=== PATIENT | male | born 1975 | race Caucasian/White ===

== ENCOUNTER 2018-01-20 09:48 | Emergency (ER) | payer BC ==
--- NOTE | 2018-01-20 10:52 | RAD REPORT ---
EXAM DESCRIPTION: RAD - Chest Pa And Lat (2 Views) - 01/20/2018 10:46 am CLINICAL HISTORY: CHEST PAIN Chest pain. COMPARISON: Chest Single View dated 10/10/2016; CHEST SINGLE VIEW dated 03/14/2015; CHEST PA AND LAT 2 VIEW dated 11/22/2012; ABDOMEN 1 VIEW KUB dated 11/22/2012 FINDINGS: The lungs are clear. The heart is normal in size. No displaced fractures. IMPRESSION: No acute or concerning finding suspected.
[2018-01-20] MEDS ORDERED: METHYLPREDNISOLONE 125 MG INJ ONE (11:06)
[2018-01-20 11:51] LABS: BUN Blood Urea Nitrogen 10 mg/dL (7-18); Bicarbonate 24 mmol/L (21-32); CKMB Creatine Kinase MB 1.3 ng/mL (0.3-3.6); Creatine Phosphokinase 161 U/L (39-308); Glucose Level 92 mg/dL (74-106); Magnesium 2.2 mg/dL (1.8-2.4); NT PRO-BNP 55 pg/mL (<125); Potassium 3.6 mmol/L (3.5-5.1); Sodium Level 141 mmol/L (136-145); Troponin (Emerg Dept Use Only) < 0.02 ng/mL (0.0-0.045)
[2018-01-20 12:00] LABS: Absolute Lymphocytes (CBC) 3.6 K/uL (0.7-4.9); Absolute Monocytes 0.8 K/uL (0.1-1.3); Absolute Neutrophil 8.9 K/uL (1.8-8.0); Basophils % 0.9 % (0-1.3); Eosinophils % 1.5 % (0-4.4); Hematocrit 47.8 % (39.6-49.0); Lymphocytes % 26.2 % (15.3-44.8); MCH 28.7 pg (27.0-35.0); MCV 83.5 fL (80-100); MPV 9.9 fL (7.6-11.3); Monocytes % 5.9 % (3.3-12.3); RBC Red Blood Cell Count 5.73 M/uL (4.33-5.43)
--- NOTE | 2018-01-20 12:11 | ER ---
Nurse's Notes [facility] Name: Ash Martinez Age: 42 yrs Sex: Male : 1975 Arrival Date: 01/20/2018 Time: 09:51 Bed 17 Private MD: Channing Barahona T Diagnosis: Pleurisy Presentation: 01/20 10:00 Presenting complaint: Patient states: pain to left lateral aspect of chest that began aa5 only with inspiration. Pt states "I had this pain about 4 years ago and they said my lung was inflamed". Transition of care: patient was not received from another setting of care. Onset of symptoms was 2017. Risk Assessment: Do you want to hurt yourself or someone else? Patient reports no desire to harm self or others. Initial Sepsis Screen: Does the patient meet any 2 criteria? No. Patient's initial sepsis screen is negative. Does the patient have a suspected source of infection? No. Patient's initial sepsis screen is negative. Care prior to arrival: None. 10:00 Method Of Arrival: Ambulatory aa5 10:00 Acuity: ROSA 3 aa5 Historical: - Allergies: 10:07 Morphine; aa5 - PMHx: 10:07 Back pain; aa5 - PSHx: 10:07 Knee surgery; aa5 - Immunization history:: Adult Immunizations up to date. - Social history:: Smoking status: Patient uses tobacco products, smokes two packs cigarettes per day. - Ebola Screening: : No symptoms or risks identified at this time. Screenin:10 Abuse screen: Denies threats or abuse. Denies injuries from another. Nutritional jl7 screening: No deficits noted. Tuberculosis screening: No symptoms or risk factors identified. Fall Risk IV access (20 points). Total Bledsoe Fall Scale indicates No Risk (0-24 pts). Assessment: 10:10 General: Appears in no apparent distress. uncomfortable, Behavior is cooperative, jl7 anxious. Pain: Complains of pain in left breast Pain currently is 3 out of 10 on a pain scale. at worst was 7 out of 10 on a pain scale. Quality of pain is described as sharp, Is continuous, Aggravated by Taking a deep breath makes it worse. Neuro: Level of Consciousness is awake, alert, obeys commands, Oriented to person, place, time, situation. Cardiovascular: Heart tones present Patient's skin is warm and dry. Rhythm is regular. Respiratory: Airway is patent Respiratory effort is even, unlabored, Respiratory pattern is regular, symmetrical, Breath sounds are clear bilaterally. GI: No signs and/or symptoms were reported involving the gastrointestinal system. : No signs and/or symptoms were reported regarding the genitourinary system. EENT: No signs and/or symptoms were reported regarding the EENT system. Derm: Skin is pink, warm \\T\\ dry. Musculoskeletal: No signs and/or symptoms reported regarding the musculoskeletal system. 11:00 Reassessment: Patient and/or family updated on plan of care and expected duration. Pain jl7 level reassessed. Patient is alert, oriented x 3, equal unlabored respirations, skin warm/dry/pink. 11:45 Reassessment: Pt reports decreased pain, "I think the medication helped it out.". jl7 12:13 Reassessment: Pt's states "Are we not even going to see an actual doctor." jl7 Educated pt and family that ERP's work under and attending ERP an that the ERD is aware and approves of all care and diagnostics provided to the pt. Pt and family request to see the ERD. ERP and ERD notified at this time. 13:00 Reassessment: Patient appears in no apparent distress at this time. Patient and/or jl7 family updated on plan of care and expected duration. Pain level reassessed. Patient is alert, oriented x 3, equal unlabored respirations, skin warm/dry/pink. 14:00 Reassessment: Dr. Jeffers at bedside discussing plan of care. jl7 Vital Signs: 10:00 BP 132 / 80; Pulse 75; Resp 20 S; Temp 98.8(TE); Pulse Ox 100% on R/A; Pain 10/10; aa5 11:00 BP 110 / 79; Pulse 68; Resp 18; Pulse Ox 97% on R/A; jl7 12:10 BP 111 / 80; Pulse 69; Resp 16; Pulse Ox 95% on R/A; jl7 13:15 BP 120 / 85; Pulse 64; Resp 12; Pulse Ox 100% ; jl7 14:24 BP 118 / 84; Pulse 65; Resp 16; Pulse Ox 99% on R/A; jl7 ED Course: 09:51 Patient arrived in ED. mr 09:51 Channing Barahona MD is Private Physician. mr 10:00 Arm band placed on Patient placed in an exam room, on a stretcher. aa5 10:03 Ml Mata FNP-C is [facility]. kb 10:03 Farshad Jeffers MD is Attending Physician. kb 10:06 Triage completed. aa5 10:10 Bridgett Rahman, BROCK is Primary Nurse. jl7 10:27 EKG done, by geophysical data technician. reviewed by Ml HERNANDEZ. at1 10:30 Patient has correct armband on for positive identification. Placed in gown. Bed in low jl7 position. Call light in reach. Side rails up X 1. manager monitoring on. Pulse ox on. NIBP on. Warm blanket given. 10:30 Initial lab(s) drawn, by me, sent to lab. Urine collected: clean catch specimen, clear. jl7 Inserted saline lock: 20 gauge in right antecubital area, using aseptic technique. Blood collected. 10:40 Chest Pa And Lat (2 Views) XRAY In Process Unspecified. EDMS 12:10 Channing Barahona MD is Referral Physician. kb 13:02 CT Chest For PE Angio In Process Unspecified. EDMS 14:10 Channing Barahona MD is Referral Physician. kb 14:10 Al Moon MD is Referral Physician. kb 14:24 No provider procedures requiring assistance completed. IV discontinued, intact, jl7 bleeding controlled, No redness/swelling at site. Pressure dressing applied. Administered Medications: 11:10 Drug: SOLU-Medrol 125 mg Route: IVP; Site: right antecubital; jl7 11:45 Follow up: Response: No adverse reaction; Pain is decreased jl7 Outcome: 12:11 Discharge ordered by . kb 14:10 Discharge ordered by MD. kb 14:24 Discharged to home ambulatory, with family. jl7 14:24 Condition: stable 14:24 Discharge instructions given to patient, family, Instructed on discharge instructions, follow up and referral plans. medication usage, Demonstrated understanding of instructions, follow-up care, medications, Prescriptions given X 2. 14:25 Patient left the ED. jl7 Signatures: Dispatcher [employer] EDVT Ml Mata FNP-C FNP-Elina Tony Katherine Rachel, RN RN aa5 Elaina Jenkins, cake puncher EKG Tat1 Bridgett Rahman, RN RN jl7
--- NOTE | 2018-01-20 12:11 | EDPHYS ---
Physician Documentation [facility] Name: Ash Martinez Age: 42 yrs Sex: Male : 1975 Arrival Date: 01/20/2018 Time: 09:51 Bed 17 Private MD: Channing Barahona T ED Physician Farshad Jeffers HPI: 01/20 10:20 This 42 yrs old Male presents to ER via Ambulatory with complaints of kb Breathing Difficulty. 10:21 The patient or guardian reports chest pain that is located primarily in the anterior kb chest wall, left. Onset: 7 day(s) ago. The pain does not radiate. Associated signs and symptoms: The patient has no apparent associated signs or symptoms. The chest pain is described as sharp, stabbing. Duration: The patient or guardian reports a single episode, that is still ongoing, wax/wane. Modifying factors: The symptoms are alleviated by nothing. the symptoms are aggravated by cough, deep breath, movement. Severity of pain: At its worst the pain was moderate in the emergency department the pain is unchanged. The patient has experienced similar episodes in the past, several times, and the symptoms today are exactly the same, to when the patient was apparently diagnosed with "inflamed lung". The patient has not recently seen a physician. Pt states he has an inflamed lung. States he had this same thing 12 years ago and again 4-5 years ago. States this time it started on and it has been waxing and waning, but not going away completely. Pain worse with deep inspiration, movement, cough. Pt smokes 1.5 packs/day. . Historical: - Allergies: 10:07 Morphine; aa5 - PMHx: 10:07 Back pain; aa5 - PSHx: 10:07 Knee surgery; aa5 - Immunization history:: Adult Immunizations up to date. - Social history:: Smoking status: Patient uses tobacco products, smokes two packs cigarettes per day. - Ebola Screening: : No symptoms or risks identified at this time. ROS: 10:17 Constitutional: Negative for fever, chills, and weight loss, Abdomen/GI: Negative for kb abdominal pain, nausea, vomiting, diarrhea, and constipation, Back: Negative for injury and pain, : Negative for injury, bleeding, discharge, and swelling, MS/Extremity: Negative for injury and deformity, Skin: Negative for injury, rash, and discoloration, Neuro: Negative for headache, weakness, numbness, tingling, and seizure. 10:17 Cardiovascular: Positive for chest pain, with cough, with movement, of the left breast, Negative for edema, orthopnea, palpitations, paroxysmal nocturnal dyspnea. 10:17 Respiratory: Positive for pleurisy, of the left breast. Exam: 10:20 Constitutional: This is a well developed, well nourished patient who is awake, alert, kb and in no acute distress. Head/Face: Normocephalic, atraumatic. Chest/axilla: Normal chest wall appearance and motion. Nontender with no deformity. No lesions are appreciated. Cardiovascular: Regular rate and rhythm with a normal S1 and S2. No gallops, murmurs, or rubs. Normal PMI, no JVD. No pulse deficits. Respiratory: Lungs have equal breath sounds bilaterally, clear to auscultation and percussion. No rales, rhonchi or wheezes noted. No increased work of breathing, no retractions or nasal flaring. Abdomen/GI: Soft, non-tender, with normal bowel sounds. No distension or tympany. No guarding or rebound. No evidence of tenderness throughout. Back: No spinal tenderness. No costovertebral tenderness. Full range of motion. Skin: Warm, dry with normal turgor. Normal color with no rashes, no lesions, and no evidence of cellulitis. MS/ Extremity: Pulses equal, no cyanosis. Neurovascular intact. Full, normal range of motion. Neuro: Awake and alert, GCS 15, oriented to person, place, time, and situation. Cranial nerves II-XII grossly intact. Motor strength 5/5 in all extremities. Sensory grossly intact. Cerebellar exam normal. Normal gait. 10:20 Respiratory: obvious pain with deep inspiration. Vital Signs: 10:00 BP 132 / 80; Pulse 75; Resp 20 S; Temp 98.8(TE); Pulse Ox 100% on R/A; Pain 10/10; aa5 11:00 BP 110 / 79; Pulse 68; Resp 18; Pulse Ox 97% on R/A; jl7 12:10 BP 111 / 80; Pulse 69; Resp 16; Pulse Ox 95% on R/A; jl7 13:15 BP 120 / 85; Pulse 64; Resp 12; Pulse Ox 100% ; jl7 14:24 BP 118 / 84; Pulse 65; Resp 16; Pulse Ox 99% on R/A; jl7 MDM: 10:03 Patient medically screened. kb 10:19 Data reviewed: vital signs, nurses notes. Data interpreted: Pulse oximetry: on room air kb is 100 %. Interpretation: normal. 12:09 Counseling: I had a detailed discussion with the patient and/or guardian regarding: the kb historical points, exam findings, and any diagnostic results supporting the discharge/admit diagnosis, lab results, radiology results, the need for outpatient follow up, a family practitioner, to return to the emergency department if symptoms worsen or persist or if there are any questions or concerns that arise at home. 12:09 ED course: Pain has subsided at this time. kb 01/20 10:14 Order name: Basic Metabolic Panel; Complete Time: 11:52 kb 01/20 10:14 Order name: CBC with Diff; Complete Time: 12:08 kb 01/20 10:14 Order name: Ckmb; Complete Time: 11:52 kb 01/20 10:14 Order name: CPK; Complete Time: 11:52 kb 01/20 10:14 Order name: Magnesium; Complete Time: 11:52 kb 01/20 10:14 Order name: NT PRO-BNP; Complete Time: 11:52 kb 01/20 10:14 Order name: PT-INR; Complete Time: 12:00 kb 01/20 10:14 Order name: Ptt, Activated; Complete Time: 12:00 kb 01/20 10:14 Order name: Troponin (emerg Dept Use Only); Complete Time: 11:52 kb 01/20 10:14 Order name: Chest Pa And Lat (2 Views) XRAY; Complete Time: 10:53 kb 01/20 10:14 Order name: D-Dimer; Complete Time: 12:00 kb 01/20 10:24 Order name: Urine Dipstick--Ancillary (enter results); Complete Time: 13:48 em1 01/20 12:14 Order name: CT Chest For PE Angio; Complete Time: 13:20 kb 01/20 10:14 Order name: EKG; Complete Time: 10:15 kb 01/20 10:14 Order name: Cardiac monitoring; Complete Time: 10:39 kb 01/20 10:14 Order name: EKG - Nurse/Tech; Complete Time: 10:39 kb 01/20 10:14 Order name: IV Saline Lock; Complete Time: 10:39 kb 01/20 10:14 Order name: Labs collected and sent; Complete Time: 10:39 kb 01/20 10:14 Order name: O2 Per Protocol; Complete Time: 10:39 kb 01/20 10:14 Order name: O2 Sat Monitoring; Complete Time: 10:39 kb 01/20 10:14 Order name: Urine Dipstick-Ancillary (obtain specimen); Complete Time: 10:23 kb 01/20 10:52 Order name: Labs - recollect needed; Complete Time: 11:09 bd Administered Medications: 11:10 Drug: SOLU-Medrol 125 mg Route: IVP; Site: right antecubital; [facility] 11:45 Follow up: Response: No adverse reaction; Pain is decreased jl7 Disposition: 01/21 06:45 Co-signature as Attending Physician, Farshad Jeffers MD I agree with the assessment and gilbert plan of care. Disposition: 01/20/18 14:10 Discharged to Home. Impression: Pleurisy. - Condition is Stable. - Discharge Instructions: Pleurisy, Ioll-tj-Soad. - Prescriptions for Prednisone 20 mg Oral Tablet - take 1 tablet by ORAL route once daily for 5 days; 5 tablet. Zithromax Z- Advid 250 mg Oral Tablet - take 1 tablet by ORAL route as directed for 5 days Day 1 - take two (2) tablets one time. Day 2, 3, 4 , 5 take one (1) tablet once daily.; 6 tablet. - Medication Reconciliation Form, Thank You Letter, Antibiotic Education, Prescription Opioid Use form. - Follow up: Emergency Department; When: As needed; Reason: Worsening of condition. Follow up: Channing Barahona MD; When: 2 - 3 days; Reason: Recheck today's complaints, Continuance of care, Re-evaluation by your physician. Follow up: Al Moon MD; When: 2 - 3 days; Reason: Recheck today's complaints, Continuance of care, Re-evaluation by your physician. Signatures: Dispatcher [employer] EDMS Ml Mata, [employer] FIELD SERVICE TECHNICIAN-Sylvia Grant Corey, MD MD cha Calderon, Audri, RN RN aa5 Bridgett Rahman RN RN jl7 Corrections: (The following items were deleted from the chart) 01/20 13:48 12:11 01/20/2018 12:11 Discharged to Home. Impression: Pleurisy. Condition is Stable. kb Forms are Medication Reconciliation Form, Thank You Letter, Antibiotic Education, Prescription Opioid Use. Follow up: Emergency Department; When: As needed; Reason: Worsening of condition. Follow up: Channing Barahona; When: 2 - 3 days; Reason: Recheck today's complaints, Continuance of care, Re-evaluation by your physician. kb 14:25 14:10 01/20/2018 14:10 Discharged to Home. Impression: Pleurisy. Condition is Stable. jl7 Prescriptions for Prednisone 20 mg Oral Tablet - take 1 tablet by ORAL route once daily for 5 days; 5 tablet. and Forms are Medication Reconciliation Form, Thank You Letter, Antibiotic Education, Prescription Opioid Use. Follow up: Emergency Department; When: As needed; Reason: Worsening of condition. Follow up: Channing Barahona; When: 2 - 3 days; Reason: Recheck today's complaints, Continuance of care, Re-evaluation by your physician. Follow up: Al Moon; When: 2 - 3 days; Reason: Recheck today's complaints, Continuance of care, Re-evaluation by your physician. kb
--- NOTE | 2018-01-20 13:19 | RAD REPORT ---
EXAM DESCRIPTION: CT - Chest For Pe Angio - 01/20/2018 1:02 pm CLINICAL HISTORY: Chest pain. Chest pain;Dyspnea COMPARISON: No comparisons TECHNIQUE: CT angiogram of the pulmonary arteries was performed with MIP. All CT scans are performed using dose optimization technique as appropriate and may include automated exposure control or mA/KV adjustment according to patient size. FINDINGS: A large amount of respiratory motion artifact is present. Vague poorly defined filling def ects are seen in the upper lobe segmental branches of the pulmonary arterial tree bilaterally, these are favored to be secondary to respiratory artifact rather than true pulmonary emboli. No acute aortic finding demonstrated. The lungs are clear. No significant pericardial or pleural fluid. No concerning bony finding. Small hiatal hernia. IMPRESSION: Subtle vague filling defects are seen in the upper lobe segmental pulmonary arterial ramos e branches. These are favored to represent artifact from respiratory motion rather than true pulmonar y emboli. However, small pulmonary emboli are difficult to completely rule out. It is recommended jose t the patient undergo a V/Q scan for further assessment. No acute lung findings.
[2018-01-20 13:47] LABS: Urine Blood NEGATIVE (NEG); Urine Glucose NEGATIVE (NEG); Urine Protein NEGATIVE (NEG); Urine Specific Gravity 1.015 (1.005-1.030)
--- NOTE | 2018-01-20 17:52 | EKG ---
Test Date: 2018-01-20 Test Time: 10:24:00 3D Designer: ALLEN MEASUREMENT RESULTS: Intervals: Rate: 65 VA: 136 QRSD: 92 QT: 384 QTc: 399 Lindsey: P: 59 VA: 136 QRS: 64 T: 56 INTERPRETIVE STATEMENTS: Normal sinus rhythm Normal ECG Compared to ECG 10/10/2016 07:07:10 No significant changes Electronically Signed On 01-20-18 17:50:48 CDT by Errlo Pleitez
== END 2018-01-20 14:25 | disposition home or self-care (01) ==
LOC: ER 09:48
DX: R09.1 Pleurisy (principal); F17.210 Nicotine dependence, cigarettes, uncomplicated; Z88.5 Allergy status to narcotic agent
CPT/HCPCS: 36415; 71046; 71275; 80048; 81003; 82550; 82553; 83735; 83880; 84484; 85025; 85379; 85610; 85730; 93005; 96374; 99285; J2930; Q9967